=== PATIENT | male | born 1965 | race Caucasian/White ===

== ENCOUNTER 2017-04-15 14:23 | Emergency (ER) | payer OTHER, BC ==
[2017-04-15 14:32] VITALS: RESP 18; TEMP 98.4
[2017-04-15] MEDS ORDERED: IBUPROFEN 600 MG TAB PO ONE (15:10)
--- NOTE | 2017-04-15 15:33 | EDPHY ---
H & P Time Seen by Provider: 04/15/17 15:22 HPI/ROS: CHIEF COMPLAINT: Right shoulder pain post slip on ice HISTORY OF PRESENT ILLNESS: 52-year-old male arrives via private vehicle complaining of acute right shoulder pain and right scapular pain after he slipped on ice with this morning falling backward onto the same area. Pain reproducible with palpation and range of motion. No head injury. No midline C- spine pain or injury. No peripheral paresthesia, weakness, numbness. No chest pain. No loss of consciousness. PRIMARY CARE PROVIDER: REVIEW OF SYSTEMS: A ten point review of systems was performed and is negative with the exception of the items mentioned in the HPI PAST MEDICAL/SURGICAL HISTORY: no anticoagulant use, no relevant medical/ surgical history SOCIAL HISTORY: denies alcohol use at time of incident PHYSICAL EXAM 1) GENERAL: Well-developed, well-nourished, alert and oriented. . Answering questions appropriately. 2) HEAD: Normocephalic, atraumatic 3) HEENT: Pupils equal, round, reactive to light bilaterally. Negative Horners. Nasopharynx, oropharynx, clear. No deformity or angulation of nose. No septal hematoma. No rhinorrhea. No oral trauma. Ears bilaterally with normal tympanic membranes. No hemotympanum. No fluid or blood in the external auditory canal. No raccoon eyes. No Savage sign. . 4) NECK: No cervical collar is on. Posterior cervical spine is nontender, no stepoff, no effusion. Full range of motion which does not elicit any midline cervical spine pain, no posterior midline tenderness, no step-off. 5) LUNGS: Clear to auscultation bilaterally, no wheezes, no rhonchi, no retractions. No obvious signs of trauma. No chest wall pain. No flaring, no grunting. Moving symmetrically. No crepitus. 6) HEART: [Regular rate and rhythm, 7) ABDOMEN: No guarding, no rebound, no focal tenderness, no peritoneal signs, no signs of trauma, no ecchymosis 8) MUSCULOSKELETAL: Right upper extremity: No visible trauma. No crepitus. Tender to palpation anterolateral shoulder as well as scapula. P is reproducible with range of motion as well. Distal radial ulnar median nerve function intact, deltoid sensation intact. Distal pulses brisk. 9) BACK: No midline vertebral tenderness, no fluctuance, no step-off, no obvious trauma, no visual or palpable abnormality. 10) SKIN: No laceration. No abrasion DIFFERENTIAL DIAGNOSIS: In no particular order including but limited to fracture , sprain, strain, dislocation Smoking Status: Never smoked Constitutional: Initial Vital Signs Temperature (C) 36.9 C 04/15/17 14:28 Heart Rate 74 04/15/17 14:28 Respiratory Rate 18 04/15/17 14:28 Blood Pressure 157/92 H 04/15/17 14:28 O2 Sat (%) 95 04/15/17 14:28 O2 Delivery Mode Room Air Allergies/Adverse Reactions: Penicillins Allergy (Verified 04/15/17 14:26) Home Medications: Medication Instructions Recorded Hydrochlorothiazide 10/11/10 Norvasc 10 mg 10/11/10 Hydrocodone/APAP 5/325 [[place] 1 tab PO Q6 PRN #7 tab 04/15/17 5/325 (RX)] Lisinopril 04/15/17 Synthroid 04/15/17 MDM/Departure - [facility] Imaging Results: Imaging Impressions Scapula X-Ray 04/15/17 14:32 Impression: Negative right scapular radiographs. Images reviewed by myself Medications Given: Discontinued Medications Ibuprofen (Motrin) 600 mg PO EDNOW ONE Stop: 04/15/17 15:11 Last Admin: 04/15/17 15:14 Dose: 600 mg ED Course/Re-evaluation: The patient was re-evaluated with serial exams. Discussed his negative imaging results. Discussed limitations of x-ray informed that soft tissue injury not ruled out. Recommend follow up with Orthopedics on-call, placed in a sling, given analgesia. He feels comfortable with this plan all questions and concerns addressed by myself.. Care of patient under supervision of secondary supervising physician Dr Bustillo. - Depart Disposition: Home, Routine, Self-Care Clinical Impression: Fall from slipping on ice Qualifiers: Encounter type: initial encounter Qualified Code(s): W00.9XXA - Unspecified fall due to ice and snow, initial encounter Right shoulder pain Qualifiers: Chronicity: acute Qualified Code(s): M25.511 - Pain in right shoulder Sprain of right shoulder Qualifiers: Encounter type: initial encounter Shoulder sprain type: unspecified sprain Qualified Code(s): S43.401A - Unspecified sprain of right shoulder joint, initial encounter Condition: Fair Instructions: Shoulder Sprain (ED) Additional Instructions: Return to the ER immediately if you experience discoloration, have worsening pain, numbness, tingling, or any other symptoms that concern you. If you received x-rays in the emergency department today, be advised, that ligamentous , tendon, muscular, and other non-bony injury cannot be fully ruled out. Try to keep your affected extremity elevated above the level of your chest, and keep cold packs on the affected area, for the next 48 hours. Prescriptions: Hydrocodone/APAP 5/325 [[place] 5/325 (RX)] 1 tab PO Q6 PRN #7 tab PRN Reason: Pain, Severe
[2017-04-15 16:10] VITALS: BP 137/97; PULSE 71; O2SAT 97
== END 2017-04-15 16:09 | disposition home or self-care (01) ==
DX: S43.401A Unspecified sprain of right shoulder joint, initial encounter (principal); W00.0XXA Fall on same level due to ice and snow, initial encounter